=== PATIENT | male | born 1975 | race Caucasian/White ===

== ENCOUNTER 2017-10-28 09:09 | Emergency (ER) | payer OTHER ==
[2017-10-28 09:12] VITALS: BP 112/80
[2017-10-28] MEDS ORDERED: AMOXICILLIN875 M1 PO (11:25)
[2017-10-28] MEDS ORDERED: IBUPROFEN800 M1 PO (11:25)
[2017-10-28] MEDS ORDERED: TAMIFLU75 M1 PO (11:25)
--- NOTE | 2017-10-28 11:25 | ED THROAT/DENTAL COMPLAINT ---
See Addendum History of Present Illness General Chief Complaint: General Adult Stated Complaint: SORE THROAT; FEVER; SOB Source: patient, family Exam Limitations: no limitations Vital Signs & Intake/Output Vital Signs & Intake/Output Vital Signs Date Time Temp Pulse Resp B/P B/P Pulse O2 O2 Flow FiO2 Mean Ox Delivery Rate 10/28 1123 97 Room Air 10/28 0912 99.0 114 16 112/80 96 Room Air Allergies Coded Allergies: No Known Allergies (10/28/17) Reconcile Medications Amoxicillin 875 MG TABLET 1 TAB PO BID strep Ibuprofen 800 MG TABLET 1 TAB PO TID fever Oseltamivir Phosphate (Tamiflu) 75 MG CAPSULE 1 CAP PO BID flu symptoms Triage Note: PT TO ED C/O FEVER, SORE THROAT AND SOB X1 DAY. ALSO HAVING A HEADACHE AND BODY ACHES. DAUGHTER HAD STREP THROAT AND ON ABX CURRENTLY. Triage Nurses Notes Reviewed? yes Onset: Abrupt Duration: day(s):, constant, continues in ED Timing: recent history Injury Environment: home Severity: moderate, severe No Modifying Factors: none HPI: 42-year-old male comes into the emergency room for further evaluation of fever chills body being sore throat weakness and fatigue. His daughter was diagnosed with strep throat. Symptoms going on for the past few days getting progressively worse. Denies any vomiting. Nothing seems to make the symptoms better or worse. Denies any other associated symptoms. (Mansoor Durán) Past History Travel History Traveled to [place] past 21 day No Medical History Any Pertinent Medical History? none Surgical History Surgical History: non-contributory Psychosocial History What is your primary language [place] Tobacco Use: Never used Family History Hx Contributory? No (Mansoor Durán) Review of Systems Review of Systems Constitutional: Reports: see HPI. EENTM: Reports: see HPI. Respiratory: Reports: see HPI. Cardiovascular: Reports: no symptoms. GI: Reports: no symptoms. Genitourinary: Reports: no symptoms. Musculoskeletal: Reports: no symptoms. Skin: Reports: no symptoms. Neurological/Psychological: Reports: no symptoms. Hematologic/Endocrine: Reports: no symptoms. Immunologic/Allergic: Reports: no symptoms. All Other Systems: Reviewed and Negative (Mansoor Durán) Physical Exam Physical Exam General Appearance: well developed/nourished, no apparent distress, alert Head: atraumatic, normal appearance Eyes: Bilateral: normal appearance, EOMI. Ears: Bilateral: canal normal. Nose: normal inspection Mouth/Throat: PHARYNGEAL ERYTHEMA/SWELLING, TONSILLAR EXUDATE, NO EVIDENCE OF PERITONSILLAR ABSCESS Neck: normal inspection, lymphadenopathy (R), lymphadenopathy (L) Cardiovascular/Respiratory: normal breath sounds, no respiratory distress Back: normal inspection Neurologic/Psych: awake, alert, oriented x 3 Skin: intact, normal color Core Measures ACS in differential dx? No Sepsis Present: No Sepsis Focused Exam Completed? No (Mansoor Durán) Progress Differential Diagnosis: aspirated tooth, epiglottitis, Ludwigs angina, odontogenic abscess, daniela-tonsillar abscess, pharyngeal for. body, stomatitis/ gingivitis, strep pharyngitis, tooth fracture, INFLUENZA Plan of Care: Orders Procedure Date/time Status RAPID VIRAL INFLUENZA A 10/28 912 Complete THROAT CULTURE W/QUICK STREP 10/28 912 Active Microbiology 10/28 916 NASOPHARYN: Influenza Virus A & B Rapid Smear - COMP (Mansoor Durán) Departure Departure Disposition: HOME OR SELF CARE Condition: Stable Clinical Impression Primary Impression: Pharyngitis Secondary Impressions: Viral syndrome Referrals: Meera Cherry MD,Joce Carmichael (PCP/Family) Additional Instructions: Take amoxicillin, Tamiflu, and ibuprofen as prescribed. Rest. Drink plenty of fluids. Return if any other concerns worsening symptoms. Please go over all results of today's visit with your primary care doctor. Contact your primary care doctor to let them know you were here in the emergency room. There may be nonspecific findings which may not be related to your visit today here in the emergency room but may require further evaluation and chronic monitoring by your primary care doctor. If you had a laceration today the chance of foreign body always remains. You should follow-up with your primary care doctor for recheck in 3-5 days for a wound check. If you had an x-ray done there is a chance that a fracture could have been missed on initial read and you should follow-up with your primary care doctor for repeat x-rays if symptoms persist. If your blood pressure was elevated here in the emergency room please have rechecked by [facility] primary care doctor within the next 48. If you were prescribed a narcotic here in the emergency room or any type of controlled substances you're not allowed to drive while taking this medication or operate any type of heavy machinery. Narcotics can make you feel lightheaded dizziness nausea and can cause constipation. You may need to poultry picking machine tender a stool softener. Thank you for choosing [facility] emergency room. Please return to the emergency room immediately if you have any other concerns worsening of symptoms. Departure Forms: Customer Survey General Discharge Information Prescriptions: Current Visit Scripts Amoxicillin 1 TAB PO BID #20 TAB Ibuprofen 1 TAB PO TID #30 TAB Oseltamivir Phosphate (Tamiflu) 1 CAP PO BID #10 CAP Comments 10/28/2017 11:55:14 AM Due to positive exposure to strep patient started on amoxicillin. Rest. Drink plenty of fluids. Return if any other concerns. Symptoms are likely more viral in nature. (Mansoor Durán) PA/PHARMACY SERVICE ASSOCIATE Co-Sign Statement Statement: ED Attending supervision documentation- [] I saw and evaluated the patient. I have also reviewed all the pertinent lab results and diagnostic results. I agree with the findings and the plan of care as documented in the PA's/PHARMACY SERVICE ASSOCIATE's documentation. [X] I have reviewed the ED Record and agree with the PA's/PHARMACY SERVICE ASSOCIATE's documentation. [] Additions or exceptions (if any) to the PAs/PHARMACY SERVICE ASSOCIATE's note and plan are summarized below: [] (Justin HUTCHINSON,Sushila)
== END 2017-10-28 12:03 ==
LOC: ERH 09:09
DX: J02.9 Acute pharyngitis, unspecified (principal); B34.9 Viral infection, unspecified
CPT/HCPCS: 87804; 87804-59